=== PATIENT | male | born 1950 | race Asian ===

== ENCOUNTER 2017-07-03 06:16 | Day surgery (SDC) | payer OTHER ==
[~2017-07-03] VITALS: Ht 162.6 cm; Wt 68.6 kg
[~2017-07-03 06:16] MED LIST: SODIUM CHLORIDE 0.9% 1,000 ML IV ONE
[2017-07-03] MEDS ORDERED: ALBUTEROL SULFATE 2.5 MG/0.5 ML NEB SOLUTION NEB ONE (06:17)
[2017-07-03] MEDS ORDERED: LIDOCAINE HCL 4% 50 ML SOLUTION TP ONE (06:17)
[2017-07-03] MEDS ORDERED: BENZOCAINE 20% 50 MCG/SPRAY 57 GM TP ONE (06:17)
[2017-07-03] MEDS ORDERED: LIDOCAINE HCL 2% 30 ML JELLY TP ONE (06:17)
[2017-07-03] MEDS ORDERED: MONT10TA21 PO (07:13)
[2017-07-03] MEDS ORDERED: FAMO20 PO (07:13)
[2017-07-03] MEDS ORDERED: MOME13HF IH (07:13)
[2017-07-03] MEDS ORDERED: FINA5TAB41 PO (07:13)
[2017-07-03] MEDS ORDERED: TAMS0.4C32 PO (07:13)
[2017-07-03] MEDS ORDERED: AMLO-511 PO (07:13)
[2017-07-03] MEDS ORDERED: ALBU8.5H8 IH (07:13)
[2017-07-03] MEDS ORDERED: FentaNYL CITRATE-PF 100 MCG/2 ML VIAL ONE (07:47)
[2017-07-03] MEDS ORDERED: MIDAZOLAM HCL 2 MG/2 ML VIAL ONE (07:47)
[2017-07-03] MEDS ORDERED: MethylPREDNISolone SOD SUCC 125 MG/2 ML VIAL IVP ONE (08:45)
[2017-07-03] MEDS ORDERED: OXYGEN THERAPY IH SCH (20:00)
== END 2017-07-03 09:40 | disposition home or self-care (01) ==
LOC: SURGERY 06:16
PROVIDERS: ATTEND Internal Medicine Critical Care Medicine
DX: J38.4 Edema of larynx (principal); B37.0 Candidal stomatitis; K21.9 Gastro-esophageal reflux disease without esophagitis
CPT/HCPCS: 31623; 31624; 71010; 87015 ×2; 87070; 87077; 87101; 87186; 87205; 87220; 88108; 88312; J2250; J2930; J3010; J7030

== ENCOUNTER 2019-08-28 06:00 | Day surgery (SDC) | payer OTHER ==
[~2019-08-28] VITALS: Ht 170.2 cm; Wt 73.6 kg
[~2019-08-28 06:00] MED LIST changes: +ALBU8.5H8 IH; +AMLO5TAB9 PO; +FAMO20 PO; +FINA-27 PO; +MOME13HF IH; +MONT10TA21 PO; -SODIUM CHLORIDE 0.9% 1,000 ML IV ONE; +SODIUM CHLORIDE 0.9% 1,000 ML ONE; +TAMS-13 PO
[2019-08-28] MEDS ORDERED: ALBUTEROL SULFATE 2.5 MG/0.5 ML NEB SOLUTION NEB ONE (06:01)
[2019-08-28] MEDS ORDERED: BENZOCAINE 20% 50 MCG/SPRAY 57 GM TP ONE (06:01)
[2019-08-28] MEDS ORDERED: LIDOCAINE 4% 50 ML SOLUTION TP ONE (06:01)
[2019-08-28] MEDS ORDERED: LIDOCAINE 2% 30 ML JELLY TP ONE (06:01)
[2019-08-28] MEDS ORDERED: SODIUM CHLORIDE 0.9% 1,000 ML IV ONE (06:30)
[2019-08-28] MEDS ORDERED: MIDAZOLAM HCL 2 MG/2 ML VIAL ONE (06:57)
[2019-08-28] MEDS ORDERED: FentaNYL CITRATE-PF 100 MCG/2 ML VIAL ONE (06:58)
[2019-08-28] MEDS ORDERED: OMEP20 PO (07:52)
[2019-08-28] MEDS ORDERED: TENO25TA PO (07:52)
[2019-08-28] MEDS ORDERED: MethylPREDNISolone SOD SUCC 125 MG/2 ML VIAL IVP ONE (08:45)
[2019-08-28] MEDS ORDERED: MethylPREDNISolone SOD SUCC 125 MG/2 ML VIAL ONE (08:58)
[2019-08-28] MEDS ORDERED: OXYGEN THERAPY IH SCH (20:00)
== END 2019-08-28 10:10 | disposition home or self-care (01) ==
LOC: SURGERY 06:00
PROVIDERS: ATTEND Internal Medicine Critical Care Medicine
DX: R05 Cough (principal); R91.1 Solitary pulmonary nodule; J34.89 Other specified disorders of nose and nasal sinuses; J98.8 Other specified respiratory disorders; J38.4 Edema of larynx; B37.0 Candidal stomatitis; I10 Essential (primary) hypertension; N40.0 Benign prostatic hyperplasia without lower urinary tract symptoms; K21.9 Gastro-esophageal reflux disease without esophagitis; J44.9 Chronic obstructive pulmonary disease, unspecified; Z79.899 Other long term (current) drug therapy; R19.09 Other intra-abdominal and pelvic swelling, mass and lump
CPT/HCPCS: 31623; 31624; 71045; 87070; 87101; 87206; 87220; 88184; 88185; J2250; J2930; J3010; J7030; 87015; 87205; 88108; 88312

== ENCOUNTER 2021-04-14 05:51 | Day surgery (SDC) | payer OTHER ==
[~2021-04-14] VITALS: Ht 172.7 cm; Wt 73.6 kg
[~2021-04-14 05:51] MED LIST changes: +AMLO-257 PO; -AMLO5TAB9 PO; -FAMO20 PO; +MONT-35 PO; -MONT10TA21 PO; +OMEP20 PO; +TENO25TA PO
[2021-04-14] MEDS ORDERED: LIDOCAINE 4% 50 ML SOLUTION TP ONE (05:52)
[2021-04-14] MEDS ORDERED: LIDOCAINE 2% 30 ML JELLY TP ONE (05:52)
[2021-04-14] MEDS ORDERED: BENZOCAINE 20% 50 MCG/SPRAY 57 GM TP ONE (05:52)
[2021-04-14] MEDS ORDERED: ALBUTEROL SULFATE 2.5 MG/0.5 ML NEB SOLUTION NEB ONE (05:52)
[2021-04-14 06:15] LABS: COVID AG,FIA SOURCE NASOPHARYNGEAL
[2021-04-14] MEDS ORDERED: SODIUM CHLORIDE 0.9% 1,000 ML IV ONE (06:30)
[2021-04-14] MEDS ORDERED: MEMA10TA11 PO (07:03)
[2021-04-14] MEDS ORDERED: PRAV10TA39 PO (07:03)
[2021-04-14] MEDS ORDERED: FAMO20 PO (07:05)
[2021-04-14] MEDS ORDERED: FentaNYL CITRATE PF 100 MCG/2 ML VIAL ONE (07:44)
[2021-04-14] MEDS ORDERED: MIDAZOLAM HCL 5 MG/ML VIAL ONE (07:44)
[2021-04-14] MEDS ORDERED: MethylPREDNISolone SOD SUCC 125 MG/2 ML VIAL IVP ONE (08:45)
[2021-04-14] MEDS ORDERED: MethylPREDNISolone SOD SUCC 125 MG/2 ML VIAL ONE (08:54)
[2021-04-14] MEDS ORDERED: OXYGEN THERAPY IH SCH (20:00)
== END 2021-04-14 10:10 | disposition home or self-care (01) ==
LOC: SURGERY 05:51
PROVIDERS: ATTEND Internal Medicine Critical Care Medicine
DX: J38.4 Edema of larynx (principal); B37.0 Candidal stomatitis; I10 Essential (primary) hypertension; J45.909 Unspecified asthma, uncomplicated; Z98.890 Other specified postprocedural states; Z79.899 Other long term (current) drug therapy
CPT/HCPCS: 31623; 31624; 71045; 87015; 87070; 87077; 87101; 87205; 87206; 87220; 87426; 88108; 88184; 88185; 88312; C9803; J2250; J2930; J3010; J7030; 87186; J7613; Z7610

== ENCOUNTER 2022-05-27 05:54 | Day surgery (SDC) | payer OTHER ==
[~2022-05-27] VITALS: Ht 170.2 cm; Wt 73.6 kg
[~2022-05-27 05:54] MED LIST changes: +FAMO20 PO; -FINA-27 PO; +MEMA10TA11 PO; -MOME13HF IH; +MOME13HF11 IH; -OMEP20 PO; +PRAV10TA39 PO; -SODIUM CHLORIDE 0.9% 1,000 ML ONE; -TAMS-13 PO
[2022-05-27] MEDS ORDERED: EPINEPHrine 1:1,000 [1 MG/ML] VIAL IM ONE (05:55)
[2022-05-27] MEDS ORDERED: LIDOCAINE 2% 11 ML JELLY TP ONE (05:55)
[2022-05-27] MEDS ORDERED: LIDOCAINE 4% 50 ML SOLUTION TP ONE (05:55)
[2022-05-27] MEDS ORDERED: SODIUM CHLORIDE 0.9% 1,000 ML IV ONE (06:30)
[2022-05-27 06:51] LABS: COVID AG,FIA SOURCE NASAL SWAB
[2022-05-27] MEDS ORDERED: SODIUM CHLORIDE 0.9% 1,000 ML ONE (07:11)
[2022-05-27] MEDS ORDERED: FentaNYL CITRATE PF 100 MCG/2 ML VIAL ONE (08:07)
[2022-05-27] MEDS ORDERED: MIDAZOLAM HCL 5 MG/ML VIAL ONE (08:07)
[2022-05-27] MEDS ORDERED: MethylPREDNISolone SOD SUCC 125 MG/2 ML VIAL ONE (09:09)
[2022-05-27] MEDS ORDERED: MethylPREDNISolone SOD SUCC 125 MG/2 ML VIAL IVP ONE (09:15)
[2022-05-27] MEDS ORDERED: OXYGEN THERAPY IH SCH (20:00)
== END 2022-05-27 11:35 | disposition home or self-care (01) ==
LOC: SURGERY 05:54
PROVIDERS: ATTEND Internal Medicine Critical Care Medicine
DX: R05.3 Chronic cough (principal); R06.2 Wheezing; R04.2 Hemoptysis; J98.09 Other diseases of bronchus, not elsewhere classified; B37.0 Candidal stomatitis; Z20.822 Contact with and (suspected) exposure to COVID-19; Z79.899 Other long term (current) drug therapy; Z87.891 Personal history of nicotine dependence; Z85.118 Personal history of other malignant neoplasm of bronchus and lung; Z98.890 Other specified postprocedural states
CPT/HCPCS: 31623; 87101; 87220; 87070; 31624; 71045; 87015; 87426; 87206; J0171; J3010; J2930; J2250; Q9967; J7030; C9803; 88108; 88305; Z7610